=== PATIENT | male | born 1960 | race Hispanic/Latino ===

== ENCOUNTER → 2025-01-23 | Outpatient (CLI) | payer OTHER ==
[2025-01-23 12:14] LABS: ASPARTATE AMINOTRANSFERASE 16.0 U/L (10-37); CREATININE 0.8 mg/dL (0.5-1.3); GLOMERULAR FILTR. RATE CALC 99.0 mL/min (>90); GLUCOSE,RANDOM 102.0 mg/dL (70-105); LDL DIRECT 75.0 mg/dL (0-99); SODIUM SERUM 142.0 mmol/L (136-145); TOTAL PROTEIN, SERUM 7.1 g/dL (6.0-8.3); UREA NITROGEN, BLOOD 15.0 mg/dL (7-18)
== END | disposition home or self-care (01) ==
LOC: LAB 11:03
PROVIDERS: ATTEND Student in an Organized Health Care Education/Training Program
DX: I10 Essential (primary) hypertension (principal)
CPT/HCPCS: 36415; 80053; 80061

== ENCOUNTER → 2025-01-25 | Outpatient (CLI) | payer OTHER ==
[~2025-01-25] MED LIST: IOHEXOL 350 MG/ML 100ML INFUS..BTL IV ONE
--- NOTE | 2025-01-26 10:21 | HMCIMG ---
EXAM: CT Cardiac Angiogram. CLINICAL HISTORY: Chest pain. TECHNIQUE: Thin collimated axial CT cardiac angiogram images were obtained. A CT scan is done according to ALARA (As Low As Reasonably Achievable). COMPARISON: None provided. FINDINGS: Coronary CT Angiography: Dominance of the coronary artery system: Right Left Main: The left main gives rise to the LAD and circumflex arteries. Small peripheral eccentric calcified plaques in the left main are causing mild narrowing of up to 25%. Left Anterior Descending Artery /T/ Diagonals: The proximal left anterior descending artery shows peripheral eccentric multiple patchy calcified plaques causing moderate narrowing of up to 50%. The first diagonal branch is thin in caliber. The mid and distal LAD appear normal. LAD is a type II vessel. Left Circumflex Artery /T/ Obtuse Marginals: The left circumflex artery demonstrates thin, patchy, eccentric calcified plaques proximally, causing mild narrowing of up to 20%. The obtuse marginal branches (OM1) have no stenosis or plaques. Right Coronary Artery: There are thin, patchy, peripheral calcified eccentric plaques along the entire extent of the right coronary artery, causing mild narrowing of up to 20%. The acute marginal is normal in course and shows no plaques or stenosis. RCA is a dominant artery. The right posterior descending artery and right posterolateral branches have no stenosis or plaques. Cardiac Morphology:Both atria and ventricles are normal. The mitral valve leaflets are normal. The pericardium is normal, and there is no pericardial effusion. The aortic valve is tricuspid. The visualized thoracic aorta is normal in course and caliber. Extracardiac findings:The visualised pulmonary arteries appear normal in caliber. The visualised lung parenchyma shows centrilobular emphysema. The included portion of the upper abdomen appears normal. Impression: Triple-vessel coronary artery disease as described. CADRADS 3. Right Dominant Circulation. /Juana Diaz
== END | disposition home or self-care (01) ==
LOC: RAH 08:15
PROVIDERS: ATTEND Student in an Organized Health Care Education/Training Program
DX: I25.10 Atherosclerotic heart disease of native coronary artery without angina pectoris (principal); R07.9 Chest pain, unspecified
CPT/HCPCS: 75574; Q9967